=== PATIENT | female | born 1970 | race Caucasian/White ===

== ENCOUNTER → 2021-02-04 | Outpatient (CLI) | payer BC ==
[~2021-02-04] MED LIST: BAMLANIVIMAB (EUA) 700 MG, ETESEVIMAB (EUA) 1,400 MG in SODIUM CHLORIDE 0.9% 50 ML IVPB NR; SODIUM CHLORIDE 0.9% 50 ML IVPB NR; SODIUM CHLORIDE 0.9% 500 ML 500 ML in EMPTY BAG 1 BAG IV PRN
[2021-02-04 14:04] VITALS: RESP 18; TEMP 96.1
[2021-02-04 14:34] VITALS: BP 114/80; PULSE 65
== END ==
LOC: PROCWHC3 13:04
PROVIDERS: ATTEND Internal Medicine Geriatric Medicine
DX: U07.1 COVID-19 (principal); E66.9 Obesity, unspecified
CPT/HCPCS: 96360; J3490; M0245

== ENCOUNTER 2021-11-12 20:17 | Inpatient (IN) | payer BC ==
[2021-11-12] MEDS ORDERED: MORPHINE SULFATE 4 MG/ML SYRINGE IV STA (22:05)
[2021-11-12] MEDS ORDERED: ONDANSETRON 4 MG/2 ML VIAL IVP STA (22:05)
[2021-11-12] MEDS ORDERED: SODIUM CHLORIDE 0.9% 1,000 ML IV STA (22:05)
[2021-11-12 22:47] LABS: Basophils % (A) 1 %; Eosinophils # (A) 0.1 k/uL (0-0.7); Eosinophils % (A) 3 %; HCT 42.9 % (34.0-46.0); HGB 14.5 gm/dL (11.4-16.0); Lymphocytes # (A) 0.8 k/uL (1.0-4.8); Lymphocytes % (A) 19 %; MCH 30.1 pg (25.0-35.0); MCHC 33.8 g/dL (31.0-37.0); MCV 89.1 fL (80.0-100.0); Mean Platelet Volume 8.7; Monocytes # (A) 0.3 k/uL (0-1.0); Monocytes % (A) 6 %; Neutrophils # (A) 3.2 k/uL (1.3-7.7); Neutrophils % (A) 71 %; Platelet Count 275 k/uL (150-450); RBC 4.82 m/uL (3.80-5.40); RDW 12.7 % (11.5-15.5); WBC 4.5 k/uL (3.8-10.6)
--- NOTE | 2021-11-12 23:02 | ED ---
Abdominal Pain HPI - General Source: patient Mode of arrival: ambulatory Limitations: no limitations <Alda Call - Last Filed: 11/13/21 00:29> <Bran Franco - Last Filed: 11/13/21 02:57> - General Chief Complaint: Abdominal Pain Stated Complaint: acute abd pain Time Seen by Provider: 11/12/21 21:54 - History of Present Illness Initial Comments: Patient is a 51-year-old female presenting with chief complaint of epigastric pain. Patient states the pain started last night and has been getting worse. Patient describes it as a sharp pain. Patient had one episode of nausea and vomiting here in the ER, she states that prior to that she has not been experiencing these symptoms. No hematemesis, hematochezia, melena, diarrhea. No chest pain or shortness of breath. No fever or chills. (Alda Call) - Related Data Allergies Allergy/AdvReac Type Severity Reaction Status Date / Time No Known Allergies Allergy Verified 11/12/21 20:48 Review of Systems ROS Other: All systems not noted in ROS Statement are negative. <Alda Call - Last Filed: 11/13/21 00:29> ROS Other: All systems not noted in ROS Statement are negative. <Bran Franco - Last Filed: 11/13/21 02:57> ROS Statement: Those systems with pertinent positive or pertinent negative responses have been documented in the HPI. Past Medical History Past Medical History: No Reported History History of Any Multi-Drug Resistant Organisms: None Reported Past Surgical History: No Surgical Hx Reported Past Psychological History: No Psychological Hx Reported Smoking Status: Never smoker Past Alcohol Use History: Occasional Past Drug Use History: None Reported <Alda Call - Last Filed: 11/13/21 00:29> General Exam Limitations: no limitations General appearance: alert, in no apparent distress Head exam: Present: atraumatic, normocephalic, normal inspection Eye exam: Present: normal appearance, EOMI. Absent: scleral icterus, periorbital swelling Neck exam: Present: normal inspection Respiratory exam: Present: normal lung sounds bilaterally. Absent: respiratory distress, wheezes, rales, rhonchi, stridor Cardiovascular Exam: Present: regular rate, normal rhythm, normal heart sounds. Absent: systolic murmur, diastolic murmur, rubs, gallop, clicks GI/Abdominal exam: Present: soft. Absent: distended, tenderness, guarding, rebound, rigid Neurological exam: Present: alert, oriented X3, CN II-XII intact Psychiatric exam: Present: normal affect, normal mood Skin exam: Present: warm, dry, intact, normal color. Absent: rash <Alda Call - Last Filed: 11/13/21 00:29> Course <Alda Call - Last Filed: 11/13/21 00:29> Vital Signs 11/12/21 11/13/21 20:48 00:42 Temperature 98 F Pulse Rate 84 71 Respiratory 16 18 Rate Blood Pressure 164/107 124/86 O2 Sat by Pulse 98 97 Oximetry - Reevaluation(s) Reevaluation #1: Patient is signed out to attending Dr. Franco for further management and disposition 11/13/21 00:29 (Alda Call) Medical Decision Making - Lab Data Result diagrams: 11/12/21 22:25 11/12/21 23:15 <Alda Call - Last Filed: 11/13/21 00:29> - Lab Data Result diagrams: 11/12/21 22:25 11/12/21 23:15 <Bran Franco - Last Filed: 11/13/21 02:57> - Medical Decision Making Patient is a 51-year-old female presenting with chief complaint of epigastric pain that started yesterday. Patient started experiencing nausea and vomiting while here in the ER. On examination abdomen is soft, nontender, nondistended. CBC shows no leukocytosis or anemia. Bilirubin is 2.4, AST 869, ALT 838, alk phos 167. EKG shows no ischemic changes and troponin is less than 0.012. Ultrasound is ordered. (Alda Call) - Lab Data Lab Results 11/12/21 11/12/21 11/12/21 Range/Units 22:25 22:25 23:15 WBC 4.5 (3.8-10.6) k/uL RBC 4.82 (3.80-5.40) m/uL Hgb 14.5 (11.4-16.0) gm/dL Hct 42.9 (34.0-46.0) % MCV 89.1 (80.0-100.0) fL MCH 30.1 (25.0-35.0) pg MCHC 33.8 (31.0-37.0) g/dL RDW 12.7 (11.5-15.5) % Plt Count 275 (150-450) k/uL MPV 8.7 Neutrophils % 71 % Lymphocytes % 19 % Monocytes % 6 % Eosinophils % 3 % Basophils % 1 % Neutrophils # 3.2 (1.3-7.7) k/uL Lymphocytes # 0.8 L (1.0-4.8) k/uL Monocytes # 0.3 (0-1.0) k/uL Eosinophils # 0.1 (0-0.7) k/uL Basophils # 0.0 (0-0.2) k/uL PT 10.9 (9.0-12.0) sec INR 1.0 (<1.2) APTT 22.6 (22.0-30.0) sec Sodium (137-145) mmol/L Potassium (3.5-5.1) mmol/L Chloride (98-107) mmol/L Carbon Dioxide (22-30) mmol/L Anion Gap mmol/L BUN (7-17) mg/dL Creatinine (0.52-1.04) mg/dL Est GFR (CKD-EPI)AfAm (>60 ml/min/1.73 sqM) Est GFR (CKD-EPI)NonAf (>60 ml/min/1.73 sqM) Glucose (74-99) mg/dL Plasma Lactic Acid Beto (0.7-2.0) mmol/L Calcium (8.4-10.2) mg/dL Total Bilirubin (0.2-1.3) mg/dL AST (14-36) U/L ALT (4-34) U/L Alkaline Phosphatase (38-126) U/L Troponin I (0.000-0.034) ng/mL Total Protein (6.3-8.2) g/dL Albumin (3.5-5.0) g/dL Amylase (30-110) U/L Lipase (23-300) U/L Urine Color Dark Yellow Urine Appearance Cloudy H (Clear) Urine pH 6.5 (5.0-8.0) Ur Specific [place] 1.022 (1.001-1.035) Urine Protein 1+ H (Negative) Urine Glucose (UA) Negative (Negative) Urine Ketones Negative (Negative) Urine Blood Small H (Negative) Urine Nitrite Negative (Negative) Urine Bilirubin 2+ H (Negative) Urine Urobilinogen 8.0 (<2.0) mg/dL Ur Leukocyte Esterase Moderate H (Negative) Urine RBC 10 H (0-5) /hpf Urine WBC 23 H (0-5) /hpf Ur Squamous Epith Cells 2 (0-4) /hpf Urine Bacteria Rare H (None) /hpf Urine Mucus Rare H (None) /hpf Urine HCG, Qual (Not Detectd) 11/12/21 11/12/21 11/12/21 Range/Units 23:15 23:15 23:15 WBC (3.8-10.6) k/uL RBC (3.80-5.40) m/uL Hgb (11.4-16.0) gm/dL Hct (34.0-46.0) % MCV (80.0-100.0) fL MCH (25.0-35.0) pg MCHC (31.0-37.0) g/dL RDW (11.5-15.5) % Plt Count (150-450) k/uL MPV Neutrophils % % Lymphocytes % % Monocytes % % Eosinophils % % Basophils % % Neutrophils # (1.3-7.7) k/uL Lymphocytes # (1.0-4.8) k/uL Monocytes # (0-1.0) k/uL Eosinophils # (0-0.7) k/uL Basophils # (0-0.2) k/uL PT (9.0-12.0) sec INR (<1.2) APTT (22.0-30.0) sec Sodium 141 (137-145) mmol/L Potassium 3.7 (3.5-5.1) mmol/L Chloride 104 (98-107) mmol/L Carbon Dioxide 24 (22-30) mmol/L Anion Gap 13 mmol/L BUN 10 (7-17) mg/dL Creatinine 0.67 (0.52-1.04) mg/dL Est GFR (CKD-EPI)AfAm >90 (>60 ml/min/1.73 sqM) Est GFR (CKD-EPI)NonAf >90 (>60 ml/min/1.73 sqM) Glucose 121 H (74-99) mg/dL Plasma Lactic Acid Beto 1.0 (0.7-2.0) mmol/L Calcium 9.1 (8.4-10.2) mg/dL Total Bilirubin 2.4 H (0.2-1.3) mg/dL AST 869 H (14-36) U/L ALT 838 H (4-34) U/L Alkaline Phosphatase 167 H (38-126) U/L Troponin I (0.000-0.034) ng/mL Total Protein 7.1 (6.3-8.2) g/dL Albumin 4.4 (3.5-5.0) g/dL Amylase 44 (30-110) U/L Lipase 144 (23-300) U/L Urine Color Urine Appearance (Clear) Urine pH (5.0-8.0) Ur Specific Sterling (1.001-1.035) Urine Protein (Negative) Urine Glucose (UA) (Negative) Urine Ketones (Negative) Urine Blood (Negative) Urine Nitrite (Negative) Urine Bilirubin (Negative) Urine Urobilinogen (<2.0) mg/dL Ur Leukocyte Esterase (Negative) Urine RBC (0-5) /hpf Urine WBC (0-5) /hpf Ur Squamous Epith Cells (0-4) /hpf Urine Bacteria (None) /hpf Urine Mucus (None) /hpf Urine HCG, Qual Not Detected (Not Detectd) 11/12/21 Range/Units 23:15 WBC (3.8-10.6) k/uL RBC (3.80-5.40) m/uL Hgb (11.4-16.0) gm/dL Hct (34.0-46.0) % MCV (80.0-100.0) fL MCH (25.0-35.0) pg MCHC (31.0-37.0) g/dL RDW (11.5-15.5) % Plt Count (150-450) k/uL MPV Neutrophils % % Lymphocytes % % Monocytes % % Eosinophils % % Basophils % % Neutrophils # (1.3-7.7) k/uL Lymphocytes # (1.0-4.8) k/uL Monocytes # (0-1.0) k/uL Eosinophils # (0-0.7) k/uL Basophils # (0-0.2) k/uL PT (9.0-12.0) sec INR (<1.2) APTT (22.0-30.0) sec Sodium (137-145) mmol/L Potassium (3.5-5.1) mmol/L Chloride (98-107) mmol/L Carbon Dioxide (22-30) mmol/L Anion Gap mmol/L BUN (7-17) mg/dL Creatinine (0.52-1.04) mg/dL Est GFR (CKD-EPI)AfAm (>60 ml/min/1.73 sqM) Est GFR (CKD-EPI)NonAf (>60 ml/min/1.73 sqM) Glucose (74-99) mg/dL Plasma Lactic Acid Beto (0.7-2.0) mmol/L Calcium (8.4-10.2) mg/dL Total Bilirubin (0.2-1.3) mg/dL AST (14-36) U/L ALT (4-34) U/L Alkaline Phosphatase (38-126) U/L Troponin I <0.012 (0.000-0.034) ng/mL Total Protein (6.3-8.2) g/dL Albumin (3.5-5.0) g/dL Amylase (30-110) U/L Lipase (23-300) U/L Urine Color Urine Appearance (Clear) Urine pH (5.0-8.0) Ur Specific Sterling (1.001-1.035) Urine Protein (Negative) Urine Glucose (UA) (Negative) Urine Ketones (Negative) Urine Blood (Negative) Urine Nitrite (Negative) Urine Bilirubin (Negative) Urine Urobilinogen (<2.0) mg/dL Ur Leukocyte Esterase (Negative) Urine RBC (0-5) /hpf Urine WBC (0-5) /hpf Ur Squamous Epith Cells (0-4) /hpf Urine Bacteria (None) /hpf Urine Mucus (None) /hpf Urine HCG, Qual (Not Detectd) - EKG Data EKG Comments: Sinus rhythm rate of 76. [place] interval 151. QRS duration 90. QT/QTC 387/417. No ST deviation. (Alda Call) Disposition <Alda Call - Last Filed: 11/13/21 00:29> Is patient prescribed a controlled substance at d/c from ED?: No Time of Disposition: 03:00 <Bran Franco - Last Filed: 11/13/21 02:57> Clinical Impression: Abdominal pain, Abdominal colic, Cholecystitis, Hepatitis Disposition: ADMITTED IP TO THIS HOSP Condition: Good Referrals: Anjum Johnson MD [Primary Care Provider] - 1-2 days
[2021-11-12 23:10] LABS: Partial Thromboplastin Time 22.6 sec (22.0-30.0); Prothrombin Time 10.9 sec (9.0-12.0)
[2021-11-12 23:48] LABS: Appearance,Urine Cloudy (Clear); Bacteria,Urine Rare /hpf; Bilirubin,Urine 2+ (Negative); Blood,Urine Small (Negative); Color,Urine Dark Yellow; Glucose,Urine (UA) Negative (Negative); Ketones,Urine Negative (Negative); Leukocyte Esterase,Urine Moderate (Negative); Mucus,Urine Rare /hpf; Nitrite,Urine Negative (Negative); PH, Urine 6.5 (5.0-8.0); Protein,Urine 1+ (Negative); RBC,Urine 10 /hpf (0-5); Specific Gravity,Urine 1.022 (1.001-1.035); Squamous Epithelial Cell,Urine 2 /hpf (0-4); WBC,Urine 23 /hpf (0-5)
[2021-11-12 23:56] LABS: African American GFR (CKD) >90 (>60 ml/min/1.73 sqM); Albumin 4.4 g/dL (3.5-5.0); Alkaline Phosphatase 167 U/L (38-126); Amylase 44 U/L (30-110); Anion Gap 13 mmol/L; Blood Urea Nitrogen 10 mg/dL (7-17); Calcium 9.1 mg/dL (8.4-10.2); Carbon Dioxide 24 mmol/L (22-30); Chloride 104 mmol/L (98-107); Glucose 121 mg/dL (74-99); Lipase 144 U/L (23-300); Non-African American GFR(CKD) >90 (>60 ml/min/1.73 sqM); Potassium 3.7 mmol/L (3.5-5.1); Sodium 141 mmol/L (137-145); Total Bilirubin 2.4 mg/dL (0.2-1.3); Total Protein 7.1 g/dL (6.3-8.2)
[2021-11-13 00:07] LABS: ALT 838 U/L (4-34); AST 869 U/L (14-36)
[2021-11-13] MEDS ORDERED: METOCLOPRAMIDE 5 MG/ML 2 ML VIAL IVP STA (00:15)
--- NOTE | 2021-11-13 01:12 | US ---
EXAMINATION TYPE: US abdomen limited DATE OF EXAM: 11/13/2021 COMPARISON: NONE CLINICAL HISTORY: epigastric pain. epigastric pain x 1 day TECHNIQUE: Multiple sonographic images of the right upper quadrant are obtained. FINDINGS: EXAM MEASUREMENTS: Liver Length: 15.1 cm Gallbladder Wall: 0.81 cm CBD: 0.24 cm Right Kidney: 9.7 x 6.1 x 5.0 cm STOCK TRACER NOTES: Pancreas: wnl Liver: Increased attenuation Gallbladder: Limited due to bowel gas. Possible stone in neck? Wall thickening noted Evidence for sonographic Paul's sign: No CBD: wnl Right Kidney: wnl IMPRESSION: There is gallbladder wall thickening. No dilated ducts. There is some shadowing at the gallbladder ne ck that could be impacted gallstone. This could be acute and chronic cholecystitis.
[2021-11-13] MEDS ORDERED: AMPICILLIN-SULBACTAM 3 GM in SODIUM CHLORIDE 0.9% 100 ML IVPB STA (02:20)
[2021-11-13] MEDS ORDERED: NALOXONE 0.4 MG/ML 1 ML VIAL IV PRN (02:55)
[2021-11-13] MEDS ORDERED: MORPHINE SULFATE 4 MG/ML SYRINGE IV PRN (02:55)
[2021-11-13] MEDS: SODIUM CHLORIDE 0.9% 1,000 ML IV SCH ×3 (05:17→18:26)
[2021-11-13 08:42] LABS: AST 619 U/L (14-36); African American GFR (CKD) >90 (>60 ml/min/1.73 sqM); Albumin 4.1 g/dL (3.5-5.0); Albumin/Globulin Ratio 1.6; Alkaline Phosphatase 168 U/L (38-126); Anion Gap 8 mmol/L; Blood Urea Nitrogen 9 mg/dL (7-17); Calcium 8.5 mg/dL (8.4-10.2); Carbon Dioxide 30 mmol/L (22-30); Chloride 104 mmol/L (98-107); Globulin 2.6 g/dL; Glucose 104 mg/dL (74-99); Non-African American GFR(CKD) >90 (>60 ml/min/1.73 sqM); Potassium 3.9 mmol/L (3.5-5.1); Sodium 142 mmol/L (137-145); Total Bilirubin 1.6 mg/dL (0.2-1.3); Total Protein 6.7 g/dL (6.3-8.2)
[2021-11-13 09:12] LABS: ALT 773 U/L (4-34)
[2021-11-13 09:20] LABS: Basophils % (A) 1 %; Eosinophils # (A) 0.2 k/uL (0-0.7); Eosinophils % (A) 4 %; HCT 40.1 % (34.0-46.0); HGB 13.2 gm/dL (11.4-16.0); Lymphocytes % (A) 23 %; MCH 29.5 pg (25.0-35.0); MCHC 32.8 g/dL (31.0-37.0); MCV 89.9 fL (80.0-100.0); Mean Platelet Volume 9.5; Monocytes # (A) 0.3 k/uL (0-1.0); Monocytes % (A) 7 %; Neutrophils # (A) 2.7 k/uL (1.3-7.7); Neutrophils % (A) 64 %; Platelet Count 250 k/uL (150-450); RBC 4.46 m/uL (3.80-5.40); RDW 13.1 % (11.5-15.5); WBC 4.3 k/uL (3.8-10.6)
[2021-11-13 09:24] LABS: Hepatitis A Antibody IgM Nonreactive (Nonreactive); Hepatitis B Core IgM Nonreactive (Nonreactive); Hepatitis B Surface Antigen Nonreactive (Nonreactive); Hepatitis C IgG Antibody Nonreactive (Nonreactive)
[2021-11-13] MEDS: PANTOPRAZOLE 40 MG/10 ML VIAL IV SCH (09:52)
[2021-11-13] MEDS: ONDANSETRON 4 MG/2 ML VIAL IVP PRN (09:59)
[2021-11-13] MEDS ORDERED: ACETAMINOPHEN TAB 325 MG TAB PO PRN (10:40)
[2021-11-13] MEDS ORDERED: AMPICILLIN-SULBACTAM 3 GM in SODIUM CHLORIDE 0.9% 100 ML IVPB SCH (11:00)
--- NOTE | 2021-11-13 11:26 | P.GSHP ---
History of Present Illness H&P Date: 11/13/21 CHIEF COMPLAINT: Abdominal pain HISTORY OF PRESENT ILLNESS: This is a 51-year-old female who presented to the hospital with complaints of epigastric abdominal pain that started Wednesday night. She had eaten [place] toast for dinner as well as had an Excedrin for headache. Patient describes it as a burning sensation in the epigastric area that moved up into the chest. The pain became very severe was rating it a 9 out of 10. Patient continued to have pain over the last couple days. She did have episode of vomiting in the ER. She came in for further evaluation. Abdominal ultrasound had shown evidence of collateral thickening. Impacted gallbladder neck stone and correlate for acute and chronic cholecystitis. She did have elevated total bilirubin and LFTs. Patient has never had symptoms at this before. Patient reports that her pain is better today. She does have some mild nausea. She denies any prior abdominal surgical history. She denies any cardiac history. PAST MEDICAL HISTORY: none PAST SURGICAL HISTORY: none MEDICATIONS: See list. ALLERGIES: See list. SOCIAL HISTORY: No illicit drug use. REVIEW OF SYSTEMS: CONSTITUTIONAL: Denies fever or chills. HEENT: Denies blurred vision, vision changes, or eye pain. Denies hemoptysis ENDOCRINE: Denies heat or cold intolerance. CARDIOVASCULAR: Denies chest pain or pressure. RESPIRATORY: No shortness of breath. GASTROINTESTINAL: please refer to HPI NEURO: Denies history of seizures. PSYCH: No depression or suicidal ideation HEMATOLOGIC: Denies bleeding disorders. LYMPHATIC: The patient denies any lumps and bumps around the neck. GENITOURINARY: Denies any blood in urine or increased urinary frequency. MUSCULOSKELETAL: Denies myalgias. Denies joint swelling. Denies decreased range of motion beyond patients baseline. SKIN: Denies pruitis. Denies rash. PHYSICAL EXAM: VITAL SIGNS: Reviewed GENERAL: Well-developed in no acute distress. HEENT: No sclera icterus. Extraocular movements grossly intact. Moist buccal mucosa. Head is atraumatic, normocephalic. Hears conversational speech. No nasal de inage. NECK: Supple without lymphadenopathy. CHEST: Non-labored respirations and equal bilateral excursions. CARDIOVASCULAR: Palpable 2+ radial pulses. ABDOMEN: Soft. Nondistended. Nontender MUSCULOSKELETAL: No clubbing or cyanosis. NEUROLOGIC: No focal or lateralizing signs. Cranial nerves II through XII grossly intact. PSYCH: Appropriate affect. Alert and oriented to person, place and time. SKIN: Well perfused. Good skin turgor. LABORATORY DATA: WBC 4.3 Hgb 13.2 platelets 250 Sodium 142 potassium 3.9 creatinine 0.65 Lactic acid 1.0 Total bilirubin 2.4 down to 1.6 AST 869 down to 619 ALT 838 down to 773 alk phos 167 up to 168 Lipase 144 Troponin negative Hepatitis panel negative urinalysis moderate leukocyte esterase Urine culture pending IMAGING: Abdominal ultrasound there is gallbladder wall thickening. No dilated ducts. There is some shadowing at the gallbladder neck could be impacted gallstone. This could be acute and chronic cholecystitis. ASSESSMENT: 1. Possible acute and chronic cholecystitis. Abdominal ultrasound showing gallbladder wall thickening and some shadowing at the gallbladder neck that could be impacted gallstone. 2. Possible choledocholithiasis with passing of gallstone 3. Elevated LFTs and total bilirubin 4. Possible UTI PLAN: -Patient is scheduled for Robotic cholecystectomy tomorrow, 11/14/[address] Starks -MRCP ordered to rule out any common bile duct stone -Patient can have clear liquid diet today -Nothing by mouth after midnight -Continue IV antibiotics -Continue antiemetics and pain medication as needed -Continue IV fluids Physician Basketball Commentator note has been reviewed by physician. Signing provider agrees with the documented findings, assessment, and plan of care. REASON FOR ADMISSION: Elevated liver enzymes abdominal pain cholecystitis HISTORY OF PRESENT ILLNESS: The patient is a 37-year-old female who reports no prior history of gallstones who presented to emergency room with acute onset epigastric right upper quadrant abdominal pain. She reports dark-colored urine. No prior events. All of the events happened in the last 1-2 days. She presented with elevated liver enzymes over 600 700s and 100s for AST ALT and alkaline phosphatase. Total bilirubin was also elevated. Diagnostic studies demonstrated impacted gallstone. As result of precipitation of possible choledocholithiasis, patient is admitted. PAST MEDICAL HISTORY: See list and reviewed PAST SURGICAL HISTORY: See list and reviewed MEDICATIONS: See list and reviewed ALLERGIES: See list and reviewed SOCIAL HISTORY: See list and reviewed FAMILY HISTORY: See list and reviewed REVIEW OF ORGAN SYSTEMS: CONSTITUTIONAL: No fevers or chills. No recent weight loss. BMI 38.0 with obesity EYES: Denies any trouble with vision. No glasses. HEENT: No difficulties with hearing. No nosebleeds. No difficulty swallowing. RESPIRATORY: Denies pneumonia. Denies any troubles with breathing or dyspnea on exertion. Has multiple seasonal and food ALLERGIES. CARDIOVASCULAR: Denies any chest pain, palpitations, or recent heart attacks. GASTROINTESTINAL: Denies fatty food intolerance. Denies change in bowel habits and gas bloat. GENITOURINARY: Denies any blood in urine or increased urinary frequency. NEUROLOGICAL: Denies any numbness or tingling along the distal extremities. No seizure disorders or headaches. MUSCULOSKELETAL: Denies any back pain, stiffness or joint arthritis. SKIN: No current skin cancer. No rash. PSYCHIATRIC: Denies current depression or suicidal thoughts. ENDOCRINE: Denies current thyroid disorders. Denies any blood sugar glucose intolerance. HEME/LYMPHATIC: Denies any lumps and bumps around the neck. No recent deep venous thrombosis. ALLERGY/IMMUNOLOGY: No immunoglobulin therapy. No immune deficiencies. BREAST: Denies current breast lumps, pain or nipple discharge. PHYSICAL EXAM: VITALS: Reviewed CONSTITUTIONAL: Well developed and in no acute distress. EYES: Conjuctivae with sclera icterus. Extraocular movements grossly intact. HEAD, EARS, NOSE, THROAT: Moist buccal mucosa. Head is atraumatic, normocephalic. Hears conversational speech. No nasal drainage. NECK: Supple. No JV distention. No thyroidomegaly. RESPIRATORY: Non-labored respirations and equal bilateral excursions. No gross wheezes. CARDIOVASCULAR: Palpable 2+ radial pulses. ABDOMEN: Tender epigastrium. LYMPH: No neck lymphadenopathy. MUSCULOSKELETAL: Nail and fingers with good capillary refill. SKIN: Warm and well perfused with good skin turgor. NEUROLOGIC: Cranial nerves II through XII grossly intact. No focal or lateralizing signs. PSYCH: Appropriate affect. Alert and oriented to person, place and time. Displays appropriate insight. CLINCAL LABS: Reviewed. WBC normal 4.5 on admission. Total bilirubin elevated at 2.4. AST elevated 869. ALT elevated 838. Alkaline phosphatase elevated 167. Urine positive for 2+ bilirubin. IMAGING: Independently reviewed. Ultrasound of the gallbladder independently reviewed demonstrates thickened gallbladder wall with gallstones at the infundibulum and fatty liver disease. This is my independent interpretation. RADIOLOGY: Report reviewed. Ultrasound demonstrates acute and chronic cholecystitis with thickened gallbladder wall. Common bile duct within normal limits. Negative Paul sign. Liver increased attenuation. EKG: Normal sinus rhythm. ASSESSMENT: 1. Acute cholecystitis with elevated liver enzymes 2. Obesity due to excess calories, BMI 38.0 3. Choledocholithiasis in presence of acute cholecystitis PLAN: 1. IV fluid hydration. 2. IV antibiotics were acute cholecystitis 3. GI consulted per emergency room provider 4. Hepatitis serology sent 5. Recommend MRCP for risk of choledocholithiasis 6. Repeat chemistries 7. May have clear liquid diet. 8. Surgical intervention pending MRCP and clinical progress. ADVANCE DIRECTIVE: Thank you for this kind consultation. Past Medical History Past Medical History: No Reported History History of Any Multi-Drug Resistant Organisms: None Reported Past Surgical History: No Surgical Hx Reported Past Psychological History: No Psychological Hx Reported Smoking Status: Never smoker Past Alcohol Use History: Occasional Past Drug Use History: None Reported Medications and Allergies Home Medications Medication Instructions Recorded Confirmed Type Cetirizine HCl [Zyrtec] 10 mg PO DAILY 11/13/21 11/13/21 History diphenhydrAMINE HCL [Benadryl] 50 mg PO HS 11/13/21 11/13/21 History Allergies Allergy/AdvReac Type Severity Reaction Status Date / Time egg Allergy Dyspnea Verified 11/13/21 07:47 Milk Containing Products Allergy Dyspnea Verified 11/13/21 07:47 [Dairy] pollen extracts Allergy Dyspnea Verified 11/13/21 13:32 wheat Allergy Dyspnea Verified 11/13/21 07:47 hydrocodone [From [place]] AdvReac Nausea & Verified 11/13/21 13:44 Vomiting Surgical - Exam Vital Signs Temp Pulse Resp BP Pulse Ox 98 F 84 16 164/107 98 11/12/21 20:48 11/12/21 20:48 11/12/21 20:48 11/12/21 20:48 11/12/21 20:48 Results - Labs 11/14/21 07:39 11/14/21 07:39 Abnormal Lab Results - Last 24 Hours (Table) 11/12/21 11/12/21 11/12/21 Range/Units 22:25 23:15 23:15 Lymphocytes # 0.8 L (1.0-4.8) k/uL Glucose 121 H (74-99) mg/dL Total Bilirubin 2.4 H (0.2-1.3) mg/dL AST 869 H (14-36) U/L ALT 838 H (4-34) U/L Alkaline Phosphatase 167 H (38-126) U/L Urine Appearance Cloudy H (Clear) Urine Protein 1+ H (Negative) Urine Blood Small H (Negative) Urine Bilirubin 2+ H (Negative) Ur Leukocyte Esterase Moderate H (Negative) Urine RBC 10 H (0-5) /hpf Urine WBC 23 H (0-5) /hpf Urine Bacteria Rare H (None) /hpf Urine Mucus Rare H (None) /hpf 11/13/21 Range/Units 08:21 Lymphocytes # (1.0-4.8) k/uL Glucose 104 H (74-99) mg/dL Total Bilirubin 1.6 H (0.2-1.3) mg/dL AST 619 H (14-36) U/L ALT 773 H (4-34) U/L Alkaline Phosphatase 168 H (38-126) U/L Urine Appearance (Clear) Urine Protein (Negative) Urine Blood (Negative) Urine Bilirubin (Negative) Ur Leukocyte Esterase (Negative) Urine RBC (0-5) /hpf Urine WBC (0-5) /hpf Urine Bacteria (None) /hpf Urine Mucus (None) /hpf Diabetes panel 11/12/21 11/13/21 Range/Units 23:15 08:21 Sodium 141 142 (137-145) mmol/L Potassium 3.7 3.9 (3.5-5.1) mmol/L Chloride 104 104 (98-107) mmol/L Carbon Dioxide 24 30 (22-30) mmol/L BUN 10 9 (7-17) mg/dL Creatinine 0.67 0.65 (0.52-1.04) mg/dL Glucose 121 H 104 H (74-99) mg/dL Calcium 9.1 8.5 (8.4-10.2) mg/dL AST 869 H 619 H (14-36) U/L ALT 838 H 773 H (4-34) U/L Alkaline Phosphatase 167 H 168 H (38-126) U/L Total Protein 7.1 6.7 (6.3-8.2) g/dL Albumin 4.4 4.1 (3.5-5.0) g/dL Calcium panel 11/12/21 11/13/21 Range/Units 23:15 08:21 Calcium 9.1 8.5 (8.4-10.2) mg/dL Albumin 4.4 4.1 (3.5-5.0) g/dL Pituitary panel 11/12/21 11/13/21 Range/Units 23:15 08:21 Sodium 141 142 (137-145) mmol/L Potassium 3.7 3.9 (3.5-5.1) mmol/L Chloride 104 104 (98-107) mmol/L Carbon Dioxide 24 30 (22-30) mmol/L BUN 10 9 (7-17) mg/dL Creatinine 0.67 0.65 (0.52-1.04) mg/dL Glucose 121 H 104 H (74-99) mg/dL Calcium 9.1 8.5 (8.4-10.2) mg/dL Adrenal panel 11/12/21 11/13/21 Range/Units 23:15 08:21 Sodium 141 142 (137-145) mmol/L Potassium 3.7 3.9 (3.5-5.1) mmol/L Chloride 104 104 (98-107) mmol/L Carbon Dioxide 24 30 (22-30) mmol/L BUN 10 9 (7-17) mg/dL Creatinine 0.67 0.65 (0.52-1.04) mg/dL Glucose 121 H 104 H (74-99) mg/dL Calcium 9.1 8.5 (8.4-10.2) mg/dL Total Bilirubin 2.4 H 1.6 H (0.2-1.3) mg/dL AST 869 H 619 H (14-36) U/L ALT 838 H 773 H (4-34) U/L Alkaline Phosphatase 167 H 168 H (38-126) U/L Total Protein 7.1 6.7 (6.3-8.2) g/dL Albumin 4.4 4.1 (3.5-5.0) g/dL
[2021-11-13] MEDS: PIPERACILLIN-TAZOBACTAM 3.375 GM in SODIUM CHLORIDE 0.9% 100 ML IVPB SCH ×2 (11:35→18:26)
--- NOTE | 2021-11-13 15:59 | P.CONS ---
History of Present Illness - Reason for Consult Consult date: 11/13/21 Cholelithiasis, elevated LFTs Requesting physician: Bran Franco - Chief Complaint Abdominal pain - History of Present Illness This is a pleasant 51-year-old female who presented to the hospital with complaints of epigastric abdominal pain that started Wednesday night. She had eaten Romansh toast for dinner as well as had an Excedrin for headache. Patient describes it as a burning sensation in the epigastric area that moved up into the chest. The pain became very severe was rating it a 9 out of 10. Patient continued to have pain over the last couple days. She did have episode of vomiting in the ER. She came in for further evaluation. Abdominal ultrasound reports evidence of gallbladder wall thickening. No dilated ducts. There is some shadowing at the gallbladder neck that could be impacted gallstone. This could be acute and chronic cholecystitis. She did have elevated total bilirubin and LFTs. Patient has never had symptoms at this before. Patient reports that her pain is better today. She does have some mild nausea. She denies any prior abdominal surgical history. She denies any cardiac history. Gastroenterology was consulted for cholelithiasis, with elevated LFTs. Patient denied any fevers or chills. Admission labs showed total bilirubin 2.4 AST 869 ALT 838 alkaline phosphatase 167 amylase 44 lipase 144 Labs: WBC 4.3 hemoglobin 13 hematocrit 40 platelet count 250,000 sodium 142 potassium 3.9 BUN 9 creatinine 0.6 glucose 104 total bilirubin 1.6 AST 619 ALT 773 alkaline phosphatase 168 Review of Systems REVIEW OF SYSTEMS: CARDIOPULMONARY: No chest pain or shortness of breath. Gastrointestinal: Burning sensation in epigastric region, with severe epigastric pain. Nausea no vomiting. No hematemesis, coffee-ground emesis. No rectal bleeding, or melena. GENITOURINARY: No dysuria or hematuria. MUSCULOSKELETAL: Reports normal range of motion. SKIN: No rashes. No jaundice. ENDOCRINE: No chills, fevers. No excessive weight gain or loss. No polydipsia or polyuria. PSYCHIATRIC: Unremarkable. NEUROLOGY: No change in mental status. Denies dizziness, headache. ENT: Vision unremarkable. CONSTITUTIONAL: No recent weight loss. No fever, chills, night sweats. Past Medical History Past Medical History: No Reported History History of Any Multi-Drug Resistant Organisms: None Reported Past Surgical History: No Surgical Hx Reported Past Psychological History: No Psychological Hx Reported Smoking Status: Never smoker Past Alcohol Use History: Occasional Past Drug Use History: None Reported Medications and Allergies Home Medications Medication Instructions Recorded Confirmed Type Cetirizine HCl [Zyrtec] 10 mg PO DAILY 11/13/21 11/13/21 History diphenhydrAMINE HCL [Benadryl] 50 mg PO HS 11/13/21 11/13/21 History Allergies Allergy/AdvReac Type Severity Reaction Status Date / Time egg Allergy Dyspnea Verified 11/13/21 07:47 Milk Containing Products Allergy Dyspnea Verified 11/13/21 07:47 [Dairy] pollen extracts Allergy Dyspnea Verified 11/13/21 13:32 wheat Allergy Dyspnea Verified 11/13/21 07:47 acetaminophen [From [place]] AdvReac Nausea & Verified 11/13/21 13:44 Vomiting hydrocodone [From [place]] AdvReac Nausea & Verified 11/13/21 13:44 Vomiting Physical Exam Vitals: Vital Signs Temp Pulse Resp BP Pulse Ox 11/13/21 07:53 74 18 101/69 98 11/13/21 06:20 97.9 F 79 18 103/59 98 11/13/21 03:26 97.7 F 72 18 107/79 99 11/13/21 00:42 71 18 124/86 97 11/12/21 20:48 98 F 84 16 164/107 98 Intake and Output 11/12/21 11/13/21 11/13/21 22:59 06:59 14:59 Other: Weight 113.398 kg General appearance: The patient is alert, oriented, appears in no acute distress. Obese. HET: Head is normocephalic and atraumatic. Conjunctiva pink. Sclera anicteric. Neck: Supple without lymphadenopathy. Trachea midline. Heart: S1 S2. Regular rate and rhythm. Lungs: Clear to auscultation. Abdomen: Soft, obese, nontender, nondistended with bowel sounds. No guarding or rigidity. Skin: No rashes. No jaundice. Extremities: Normal skin color and turgor. No pedal edema. Neurological: No focal deficits. Alert and oriented x3. Results CBC & Chem 7: 11/13/21 08:21 11/13/21 08:21 Labs: Abnormal Lab Results - Last 24 Hours (Table) 11/12/21 11/12/21 11/12/21 Range/Units 22:25 23:15 23:15 Lymphocytes # 0.8 L (1.0-4.8) k/uL Glucose 121 H (74-99) mg/dL Total Bilirubin 2.4 H (0.2-1.3) mg/dL AST 869 H (14-36) U/L ALT 838 H (4-34) U/L Alkaline Phosphatase 167 H (38-126) U/L Urine Appearance Cloudy H (Clear) Urine Protein 1+ H (Negative) Urine Blood Small H (Negative) Urine Bilirubin 2+ H (Negative) Ur Leukocyte Esterase Moderate H (Negative) Urine RBC 10 H (0-5) /hpf Urine WBC 23 H (0-5) /hpf Urine Bacteria Rare H (None) /hpf Urine Mucus Rare H (None) /hpf 11/13/21 Range/Units 08:21 Lymphocytes # (1.0-4.8) k/uL Glucose 104 H (74-99) mg/dL Total Bilirubin 1.6 H (0.2-1.3) mg/dL AST 619 H (14-36) U/L ALT 773 H (4-34) U/L Alkaline Phosphatase 168 H (38-126) U/L Urine Appearance (Clear) Urine Protein (Negative) Urine Blood (Negative) Urine Bilirubin (Negative) Ur Leukocyte Esterase (Negative) Urine RBC (0-5) /hpf Urine WBC (0-5) /hpf Urine Bacteria (None) /hpf Urine Mucus (None) /hpf Microbiology - Last 24 Hours (Table) 11/12/21 23:15 Urine Culture - Preliminary Urine,Voided US - abdomen: report reviewed (Abdominal ultrasound had shown evidence of gallbladder wall thickening. No dilated ducts. There is some shadowing at the gallbladder neck that could be impacted gallstone. This could be acute and chronic cholecystitis.) Assessment and Plan (1) Transaminitis Narrative/Plan: 1-year-old female who came in with complaints of sharp epigastric pain, and burning sensation that began to stay and lasted until yesterday. Patient came i nto the emergency department his pain continued and she felt nauseated. Nothing was relieving the pain. Her while she was sleeping, didn't matter what side she laid down. Nothing seemed to relieve it. She came into the emergency further evaluation LFTs were elevated, ultrasound showing gallbladder wall thickening, no dilated ducts shadowing in the gallbladder neck that could be an impacted gal lstone. Possible acute and chronic cholecystitis. Patient is afebrile. Labs initially looked like possible choledochal lithiasis however they are trending down. Abdominal pain is completely resolved. Gen. surgery is the admitting physician, they have ordered an MRCP. Will await further recommendations. Current Visit: Yes Status: Acute Code(s): R74.01 - ELEVATION OF LEVELS OF LIVER TRANSAMINASE LEVELS SNOMED Code(s): 739629098 (2) Cholelithiasis Current Visit: Yes Status: Acute Code(s): K80.20 - CALCULUS OF GALLBLADDER W/O CHOLECYSTITIS W/O OBSTRUCTION SNOMED Code(s): 766879549 (3) Hyperbilirubinemia Current Visit: Yes Status: Acute Code(s): E80.6 - OTHER DISORDERS OF BILIRUBIN METABOLISM SNOMED Code(s): 46549685 (4) Obesity (BMI 30-39.9) Current Visit: Yes Status: Acute Code(s): E66.9 - OBESITY, UNSPECIFIED SNOMED Code(s): 189882955 Plan: 1. Continue symptomatic and supportive care 2. Continue antiemetics 3. Protonix GI prophylaxis 4. Pain medication as needed 5. Clear liquid diet, nothing by mouth after midnight 6. Agree with MRCP 7. Await further recommendations from general surgeon Thank you for this consultation, we will continue to follow. Dr. Korin Fernando I agree with the dictator's note, documented as a scribe by Ellen Haskins.
[2021-11-13] MEDS: diphenhydrAMINE 25 MG CAP PO SCH (20:42)
[2021-11-14] MEDS: PIPERACILLIN-TAZOBACTAM 3.375 GM in SODIUM CHLORIDE 0.9% 100 ML IVPB SCH ×5 (02:10→17:22)
[2021-11-14] MEDS: SODIUM CHLORIDE 0.9% 1,000 ML IV SCH ×3 (02:10→19:57)
[2021-11-14] MEDS: PANTOPRAZOLE 40 MG/10 ML VIAL IV SCH (07:33)
[2021-11-14 10:32] LABS: Basophils # (A) 0.08 X 10*3/uL (0.00-0.10); Basophils % (A) 1.3 %; Eosinophils # (A) 0.24 X 10*3/uL (0.04-0.35); HCT 43.3 % (37.2-46.3); HGB 14.2 g/dL (12.0-15.0); Immature Grans, Automated 0.3 %; Lymphocytes # (A) 1.85 X 10*3/uL (0.90-5.00); Lymphocytes % (A) 31.1 %; MCH 29.5 pg (27.0-32.0); MCHC 32.8 g/dL (32.0-37.0); Mean Platelet Volume 11.6 fL (9.5-12.2); Monocytes # (A) 0.29 X 10*3/uL (0.20-1.00); Monocytes % (A) 4.9 %; NRBC Per 100 WBC 0 /100 WBCS (0.0-0.0); Neutrophils # (A) 3.46 X 10*3/uL (1.80-7.70); Neutrophils % (A) 58.4 %; Platelet Count 295 X 10*3/uL (140-440); RBC 4.81 X 10*6/uL (4.10-5.20); RDW 13.4 % (11.5-14.5); WBC 5.94 X 10*3/uL (4.50-10.00)
[2021-11-14 10:58] LABS: African American GFR (CKD) 97.6 (60.0-200.0); Albumin 4.4 g/dL (3.8-4.9); Albumin/Globulin Ratio 1.57 (1.60-3.17); Anion Gap 11.6 mmol/L (10.00-18.00); Blood Urea Nitrogen 5.6 mg/dL (9.0-27.0); Calcium 9.1 mg/dL (8.7-10.3); Carbon Dioxide 23.4 mmol/L (20.0-27.5); Globulin 2.8 g/dL (1.6-3.3); Magnesium 2.1 mg/dL (1.5-2.4); Non-African American GFR(CKD) 84.2 (60.0-200.0); Phosphorus 3.2 mg/dL (2.4-5.1); Potassium 4.1 mmol/L (3.5-5.5); Total Bilirubin 0.6 mg/dL (0.30-1.20); Total Protein 7.2 g/dL (6.2-8.2)
--- NOTE | 2021-11-14 11:32 | MR ---
EXAMINATION TYPE: MR MRCP DATE OF EXAM: 11/14/2021 COMPARISON: Ultrasound dated 11/13/2021 HISTORY: CBD obstruction Standard multiplanar, multisequence MRI departmental protocol Multiplanar, multisequence images of the biliary tree were acquired without contrast. Diffusion weigh kristin imaging was performed. FINDINGS: The liver is of normal size. There is no evidence for intrahepatic biliary ductal dilatation. No spac e-occupying intrahepatic lesions are seen. The gallbladder demonstrates a 1 cm gallstone near the gallbladder neck. There is gallbladder wall th ickening at 6 mm. No definite pericholecystic fluid. Common bile duct is of normal caliber at 4 mm. The pancreas, spleen, adrenal glands and kidneys are within normal limits. No adenopathy. No evidence for aneurysm. IMPRESSION: Gallstone within the gallbladder neck without gallbladder wall thickening. No CBD dilatation or peric holecystic fluid. Correlate clinically.
--- NOTE | 2021-11-14 13:40 | P.PN ---
Subjective Progress Note Date: 11/14/21 Principal diagnosis: Cholelithiasis, elevated LFTs This is a pleasant 51-year-old female who presented to the hospital with complaints of epigastric abdominal pain that started Wednesday night. She had eaten Arabic toast for dinner as well as had an Excedrin for headache. Patient describes it as a burning sensation in the epigastric area that moved up into the chest. The pain became very severe was rating it a 9 out of 10. Patient continued to have pain over the last couple days. She did have episode of vomiting in the ER. She came in for further evaluation. Abdominal ultrasound reports evidence of gallbladder wall thickening. No dilated ducts. There is some shadowing at the gallbladder neck that could be impacted gallstone. This could be acute and chronic cholecystitis. She did have elevated total bilirubin and LFTs. Patient has never had symptoms at this before. Patient reports that her pain is better today. She does have some mild nausea. She denies any prior abdominal surgical history. She denies any cardiac history. Gastroenterology was consulted for cholelithiasis, with elevated LFTs. Patient denied any fevers or chills. Admission labs showed total bilirubin 2.4 AST 869 ALT 838 alkaline phosphatase 167 amylase 44 lipase 144 11/14/2021. Patient seen and examined standing up in her room. She is seen for follow-up for cholelithiasis, elevated LFTs. LFTs continued to trend down. She is scheduled to undergo MRCP today with possible cholecystectomy. She denies any abdominal pain, no nausea or vomiting. Total bilirubin 0.6 AST 186 ALT 527 alkaline phosphatase 160 lipase 41. No evidence of leukocytosis, she's been afebrile. Objective - Vital Signs Vital signs: Vital Signs Temp 97.9 F 11/14/21 07:00 Pulse 71 11/14/21 07:00 Resp 16 11/14/21 07:26 BP 95/63 11/14/21 07:00 Pulse Ox 93 L 11/14/21 07:00 FiO2 Intake & Output 11/13/21 11/14/21 11/14/21 18:59 06:59 18:59 Intake Total 240 Balance 240 Weight 113.398 kg Intake: Oral 240 Other: Voiding Method Toilet Toilet # Voids 2 1 1 - Exam General appearance: The patient is alert, oriented, appears in no acute distress. Obese. HET: Head is normocephalic and atraumatic. Conjunctiva pink. Sclera anicteric. Neck: Supple without lymphadenopathy. Abdomen: Soft, nontender, nondistended with bowel sounds. No guarding or rigidity. Extremities: Normal skin color and turgor. No pedal edema Skin: No rashes, no jaundice Neurological: No focal deficits. Alert and oriented. - Labs CBC & Chem 7: 11/14/21 07:39 11/14/21 07:39 Labs: Abnormal Lab Results - Last 24 Hours (Table) 11/14/21 Range/Units 07:39 BUN 5.6 L (9.0-27.0) mg/dL BUN/Creatinine Ratio 7.00 L (12.00-20.00) Ratio AST 186 H (13-35) U/L ALT 527 H (8-44) U/L Alkaline Phosphatase 160 H (41-126) U/L Albumin/Globulin Ratio 1.57 L (1.60-3.17) g/dL Microbiology - Last 24 Hours (Table) 11/12/21 23:15 Urine Culture - Final Urine,Voided Strep agalactiae - (group b) Assessment and Plan (1) Transaminitis Narrative/Plan: 1-year-old female who came in with complaints of sharp epigastric pain, and burning sensation that began to stay and lasted until yesterday. Patient came into the emergency department his pain continued and she felt nauseated. Nothing was relieving the pain. Her while she was sleeping, didn't matter what side she laid down. Nothing seemed to relieve it. She came into the emergency further evaluation LFTs were elevated, ultrasound showing gallbladder wall thickening, no dilated ducts shadowing in the gallbladder neck that could be an impacted gallstone. Possible acute and chronic cholecystitis. Patient is afebrile. Labs initially looked like possible choledochal lithiasis however they are trending down. Abdominal pain is completely resolved. Gen. surgery is the admitting physician, they have ordered an MRCP. Will await further recommendations. LFTs trending down. MRCP completed showing gallstone within the gallbladder neck without gallbladder wall thickening. No CBD dilation or. Clear cystic fluid. Correlate clinically. Current Visit: Yes Status: Acute Code(s): R74.01 - ELEVATION OF LEVELS OF LIVER TRANSAMINASE LEVELS SNOMED Code(s): 113101127 (2) Cholelithiasis Current Visit: Yes Status: Acute Code(s): K80.20 - CALCULUS OF GALLBLADDER W/O CHOLECYSTITIS W/O OBSTRUCTION SNOMED Code(s): 768248529 (3) Hyperbilirubinemia Current Visit: Yes Status: Acute Code(s): E80.6 - OTHER DISORDERS OF BILIRUBIN METABOLISM SNOMED Code(s): 48899279 (4) Obesity (BMI 30-39.9) Current Visit: Yes Status: Acute Code(s): E66.9 - OBESITY, UNSPECIFIED SNOMED Code(s): 137545191 Plan: 1. Continue symptomatic and supportive care 2. Continue antiemetics 3. Protonix GI prophylaxis 4. Pain medication as needed 5. Continue with recommendations from general surgery 6. No plans on ERCP Thank you for allowing us to participate in the care of the patient, the GI service will sign off, gastroenterology will not be available at the hospital this weekend. If further evaluation by gastroenterology is required the patient will need transfer as per the primary team's discretion. Dr. Korin Fernando I agree with the dictator's note, documented as a scribe by Ellen Haskins.
--- NOTE | 2021-11-14 14:45 | P.PN ---
Subjective Progress Note Date: 11/14/21 CHIEF COMPLAINT: Choledocholithiasis with acute cholecystitis HISTORY OF PRESENT ILLNESS: The patient is a 51-year-old female admitted for choledocholithiasis acute cholecystitis. She completed MRCP. No further dark urine. Family is at bedside. She reports thirst. ROS: No fevers or chills. No new chest pain. No productive sputum PHYSICAL EXAM: VITAL SIGNS: Reviewed CONSTITUTIONAL: Well developed and in no acute distress. EYES: Conjuctivae without sclera icterus. Extraocular movements grossly intact. HEAD, EARS, NOSE, THROAT: Moist buccal mucosa. Head is atraumatic, normocephalic. Hears conversational speech. No nasal drainage. RESPIRATORY: Non-labored respirations and equal bilateral excursions. CARDIOVASCULAR: Palpable 2+ radial pulses. ABDOMEN: Protuberant. No peritonitis. MUSCULOSKELETAL: No gross deformity of the lower extremities noted. No clubbing. No cyanosis. SKIN: Good skin turgor. Well perfused. NEUROLOGIC: Cranial nerves II through XII grossly intact. No focal or lateralizing signs. PSYCH: Appropriate affect. Alert and oriented to person, place and time. CLINICAL LABS: Reviewed. LFTs trending down over 24 hours. Total bilirubin normal. REPORT: MRCP report demonstrates no choledocholithiasis. Impacted gallstone at gallbladder neck identified. ASSESSMENT: 1. Acute cholecystitis due to cystic duct obstruction PLAN: 1. Robotic cholecystectomy described with benefits and risks reviewed. 2. All questions were addressed with the patient and family. 3. She is elevated risk for complications due to morbid obesity, fatty liver disease, acute cholecystitis Objective - Vital Signs Vital signs: Vital Signs Temp 98.1 F 11/14/21 13:28 Pulse 70 11/14/21 13:28 Resp 18 11/14/21 13:28 BP 128/92 11/14/21 13:28 Pulse Ox 93 L 11/14/21 07:00 FiO2 Intake & Output 11/13/21 11/14/21 11/14/21 18:59 06:59 18:59 Intake Total 240 Balance 240 Weight 113.398 kg Intake: Oral 240 Other: Voiding Method Toilet Toilet # Voids 2 1 2 - Labs CBC & Chem 7: 11/14/21 07:39 11/14/21 07:39 Labs: Abnormal Lab Results - Last 24 Hours (Table) 11/14/21 Range/Units 07:39 BUN 5.6 L (9.0-27.0) mg/dL BUN/Creatinine Ratio 7.00 L (12.00-20.00) Ratio AST 186 H (13-35) U/L ALT 527 H (8-44) U/L Alkaline Phosphatase 160 H (41-126) U/L Albumin/Globulin Ratio 1.57 L (1.60-3.17) g/dL Microbiology - Last 24 Hours (Table) 11/12/21 23:15 Urine Culture - Final Urine,Voided Strep agalactiae - (group b)
[2021-11-14] MEDS ORDERED: INDOCYANINE GREEN 25 MG VIAL IV STA (14:50)
[2021-11-14] MEDS ORDERED: IV FLUID CONTINUATION 1,000 ML IV ONE ×2 (17:03)
[2021-11-14] MEDS: ONDANSETRON 4 MG/2 ML VIAL IVP PRN (17:10)
[2021-11-14] MEDS ORDERED: HEPARIN SODIUM,PORCINE/PF 5,000 UNIT/0.5 ML SYRINGE SQ ONE (17:11)
[2021-11-14] MEDS ORDERED: SUCCINYLCHOLINE CHLORIDE 200 MG/10 ML VIAL IV ONE (17:18)
[2021-11-14] MEDS ORDERED: LIDOCAINE 2% INJ 20 MG/ML (2 ML VIAL) ONE (17:18)
[2021-11-14] MEDS ORDERED: ROCURONIUM 10 MG/ML (5 ML VIAL) IV ONE (17:18)
[2021-11-14] MEDS ORDERED: fentaNYL (PF) 50 MCG/ML 2 ML AMP ONE (17:18)
[2021-11-14] MEDS ORDERED: GLYCOPYRROLATE 0.2 MG/ML 2 ML VIAL ONE (17:18)
[2021-11-14] MEDS ORDERED: PROPOFOL 10 MG/ML 20 ML VIAL IV ONE (17:18)
[2021-11-14] MEDS ORDERED: MIDAZOLAM 2 MG/2 ML VIAL ONE (17:18)
[2021-11-14] MEDS ORDERED: NEOSTIGMINE 1 MG/ML 10 ML VIAL ONE (17:18)
[2021-11-14] MEDS ORDERED: HYDROmorphone (PF) 1 MG/ML ONE (17:18)
[2021-11-14] MEDS ORDERED: LIDOCAINE 1%-EPI 1:100,000 20 ML VIAL SQ ONE (17:42)
[2021-11-14] MEDS ORDERED: METOCLOPRAMIDE 5 MG/ML 2 ML VIAL IVP PRN (18:20)
--- NOTE | 2021-11-14 18:26 | P.OP ---
Date of Procedure: 11/14/21 Description of Procedure: SURGEON: STEPHIE BROWN MD PREOPERATIVE DIAGNOSES: 1. Choledocholithiasis with acute cholecystitis 2. Morbid obesity due to excess calories, BMI 38.0 3. Elevated liver enzymes 4. Multiple food ALLERGIES POSTOPERATIVE DIAGNOSES: 1. Choledocholithiasis with acute cholecystitis 2. Morbid obesity due to excess calories, BMI 38.0 3. Elevated liver enzymes 4. Multiple food [id number]. Peritoneal adhesions, right upper quadrant OPERATION: Robotic-assisted da Daniella Xi laparoscopic cholecystectomy, multiport with FIREFLY ESTIMATED BLOOD LOSS: 5 mL. SPECIMENS REMOVED: Gallbladder. COMPLICATIONS: None. OPERATIVE FINDINGS: 1. Moderate scarring over entire gallbladder with peritoneal adhesions, pericholecystic with features of acute on chronic cholecystitis INDICATIONS: The patient is a 51-year-old female who presents with elevated liver enzymes including recent choledocholithiasis and acute cholecystitis. Robotic assisted laparoscopic approach was described. Benefits and risks of the procedure including but not limited to bleeding, infection, injury to the biliary tree was described. Informed consent was obtained. DESCRIPTION OF PROCEDURE: Patient was brought to the operating room, placed in supine position. After general induction, the abdomen had been prepped and draped in standard sterile fashion. The robotic da Daniella XI system was primed. After a timeout protocol was performed, the patient had been prepped and draped in standard sterile fashion. The patient was injected with indocyanine green. A 5 mm 0 degrees laparoscopic trocar entry was performed along the left upper quadrant. The abdomen insufflated to 15 mmHg pressure which was tolerated well. Diagnostic laparoscopy demonstrated no injury to bowel viscera or mesentery. The liver surface was unremarkable. Next, two 8 mm robotic ports were placed along the right upper abdomen. The camera 8-mm port was maintained along the epigastrium. Another 8 mm port was placed along the left upper abdominal wall after exchanging the 5 mm port. Please note that the ports were placed at least 10 to 15 cm away from the target anatomy of the gallbladder. The robot was docked along the left lateral abdomen. The patient was repositioned in reverse Trendelenburg position. Using a grasper for arm 3, a grasper for arm 4, including hook cautery for arm 1, the robotic system was docked and primed as described. Instruments were interchanged by the assistant controller including hook cautery, Bovie cautery and clip appliers. I had sat at the console. The gallbladder was scarred with peritoneal adhesions. Lysis of adhesions was performed to free the gallbladder from the surrounding tissues. Next attention was brought to the infundibulum and cystic structures. The infundibulum and cystic duct were dissected free from surrounding tissues. The cystic duct was isolated. FIREFLY was used to identify the cystic artery and cystic structures. A critical view of safety was obtained. Large PLASTIC clips were used throughout the entire case. Using a clip stock saw operator, 2 clips were placed at the junction of the infundibulum and cystic duct. The cystic duct was divided between clips. Next, the cystic artery was similarly clipped and cauterized. Electro-Bovie cautery was used to remove the gallbladder from the hepatic fossa. Hemostasis was checked and found to be adequate. The robot was undocked. I re-scrubbed into the case. Using a 10 mm Endo Catch bag via the left upper quadrant incision, the specimen was removed from the abdominal cavity. All pneumoperitoneum instruments were evacuated from the abdominal cavity. The incisions were reapproximated using 4-0 Monocryl in an interrupted subcuticular fashion. Fascial defects were less than 8 mm in size. Please note along the trocar sites, local anesthetic was placed as a field block prior to insertion of all instruments. Liquid glue was applied to the skin. At the end of the procedure needle, sponge, and instrument count had been verified correct by the surgical first assistant. The patient was transferred to postanesthesia care unit in stable condition.
[2021-11-14] MEDS: ACETAMINOPHEN IV (For NPO) 1,000 MG in EMPTY BAG 1 BAG IVPB SCH ×2 (18:49→23:36)
[2021-11-14] MEDS: KETOROLAC 15 MG/ML 1 ML VIAL IVP SCH ×2 (18:49→23:38)
[2021-11-14] MEDS ORDERED: SODIUM CHLORIDE 0.9% 1,000 ML IV ONE (19:06)
[2021-11-14] MEDS: diphenhydrAMINE 25 MG CAP PO SCH (19:57)
[2021-11-14] MEDS: SIMETHICONE 80 MG CHEWABLE PO SCH (19:58)
[2021-11-14 23:08] VITALS: TEMP 97.7
[2021-11-15] MEDS: SODIUM CHLORIDE 0.9% 1,000 ML IV SCH ×2 (02:05→09:13)
[2021-11-15] MEDS: PIPERACILLIN-TAZOBACTAM 3.375 GM in SODIUM CHLORIDE 0.9% 100 ML IVPB SCH ×2 (02:05→09:12)
[2021-11-15 04:38] LABS: ALT 337 U/L (4-34); AST 107 U/L (14-36); African American GFR (CKD) >90 (>60 ml/min/1.73 sqM); Albumin 3.7 g/dL (3.5-5.0); Albumin/Globulin Ratio 1.5; Alkaline Phosphatase 116 U/L (38-126); Anion Gap 12 mmol/L; Blood Urea Nitrogen 7 mg/dL (7-17); Calcium 8.4 mg/dL (8.4-10.2); Carbon Dioxide 19 mmol/L (22-30); Chloride 106 mmol/L (98-107); Globulin 2.5 g/dL; Glucose 89 mg/dL (74-99); Non-African American GFR(CKD) >90 (>60 ml/min/1.73 sqM); Potassium 3.8 mmol/L (3.5-5.1); Sodium 137 mmol/L (137-145); Total Bilirubin 0.5 mg/dL (0.2-1.3); Total Protein 6.2 g/dL (6.3-8.2)
[2021-11-15] MEDS: ACETAMINOPHEN IV (For NPO) 1,000 MG in EMPTY BAG 1 BAG IVPB SCH (05:52)
[2021-11-15] MEDS: KETOROLAC 15 MG/ML 1 ML VIAL IVP SCH ×2 (05:52→12:08)
[2021-11-15 08:59] VITALS: BP 95/58; PULSE 60; RESP 18
[2021-11-15] MEDS ORDERED: ENOXAPARIN 30 MG/0.3 ML SYRINGE SQ SCH (09:00)
[2021-11-15] MEDS: SIMETHICONE 80 MG CHEWABLE PO SCH (09:12)
[2021-11-15] MEDS: PANTOPRAZOLE 40 MG/10 ML VIAL IV SCH (09:13)
--- NOTE | 2021-11-15 13:58 | P.DS ---
Providers Date of admission: 11/13/21 02:57 Expected date of discharge: 11/15/21 Attending physician: Brenna Starks Consults: 11/13/21 02:55 Consult Physician Routine Consulting Provider: Yanely Fernando Consult Reason/Comments: marifer Do you want consulting provider notified?: Yes Primary care physician: [facility] Course: POSTOPERATIVE DIAGNOSES: 1. Choledocholithiasis with acute cholecystitis 2. Morbid obesity due to excess calories, BMI 38.0 3. Elevated liver enzymes 4. Multiple food ALLERGIES5 COURSE: The patient is a 51-year-old female admitted for choledocholithiasis acute cholecystitis. She is status post cholecystectomy. Pain is well- controlled. She is tolerating diet. ROS: No fevers or chills. No new chest pain. No productive sputum PHYSICAL EXAM: VITAL SIGNS: Reviewed CONSTITUTIONAL: Well developed and in no acute distress. EYES: Conjuctivae without sclera icterus. Extraocular movements grossly intact. HEAD, EARS, NOSE, THROAT: Moist buccal mucosa. Head is atraumatic, normocephalic. Hears conversational speech. No nasal drainage. RESPIRATORY: Non-labored respirations and equal bilateral excursions. CARDIOVASCULAR: Palpable 2+ radial pulses. ABDOMEN: Incisions intact. MUSCULOSKELETAL: No gross deformity of the lower extremities noted. No clubbing. No cyanosis. SKIN: Good skin turgor. Well perfused. NEUROLOGIC: Cranial nerves II through XII grossly intact. No focal or lateralizing signs. PSYCH: Appropriate affect. Alert and oriented to person, place and time. CLINICAL LABS: Reviewed. Total bilirubin normal. LFTs trending down. ASSESSMENT: 1. Acute cholecystitis due to cystic duct obstruction PLAN: 1. Clinically stable. June discharge. 2. Follow-up with primary care provider for repeat liver enzymes 3. Return to work for December 01 following complete recovery Procedures: OPERATION: Robotic-assisted da Daniella Xi laparoscopic cholecystectomy, multiport with FIREFLY ESTIMATED BLOOD LOSS: 5 mL. SPECIMENS REMOVED: Gallbladder. COMPLICATIONS: None. OPERATIVE FINDINGS: 1. Moderate scarring over entire gallbladder with peritoneal adhesions, pericholecystic with features of acute on chronic cholecystitis Patient Condition at Discharge: Good Plan - Discharge Summary New Discharge Prescriptions: New Simethicone [Gas-X] 125 mg PO AC-TID PRN #20 capsule PRN Reason: Pain Ibuprofen [Motrin] 600 mg PO Q8HR PRN #30 tab PRN Reason: Pain Acetaminophen Tab [Tylenol Tab] 1,000 mg PO Q6HR PRN #30 tablet PRN Reason: Pain Continue diphenhydrAMINE HCL [Benadryl] 50 mg PO HS Cetirizine HCl [Zyrtec] 10 mg PO DAILY Discharge Medication List Cetirizine HCl [Zyrtec] 10 mg PO DAILY 11/13/21 [History] diphenhydrAMINE HCL [Benadryl] 50 mg PO HS 11/13/21 [History] Acetaminophen Tab [Tylenol Tab] 1,000 mg PO Q6HR PRN #30 tablet 11/15/21 [Rx] Ibuprofen [Motrin] 600 mg PO Q8HR PRN #30 tab 11/15/21 [Rx] Simethicone [Gas-X] 125 mg PO AC-TID PRN #20 capsule 11/15/21 [Rx] Follow up Appointment(s)/Referral(s): Anjum Johnson MD [Primary Care Provider] - 1-2 days Brenna Starks MD [STAFF PHYSICIAN] - 11/18/21 (TELEHEALTH) Patient Instructions/Handouts: *Surgery [facility] - Managing Your Pain After Surgery Without Opioids, Cholecystitis (GEN), Gallstones (DC), Low Fat Diet (DC), Laparoscopic Cholecystectomy (GEN) Activity/Diet/Wound Care/Special Instructions: Recommend low-fat diet for the next 2 days. No lifting over 10 pounds in 2 weeks until Nov 28. May shower. No bath tub soaks for two weeks until Nov 28 Diet as tolerated. Use Tylenol, simethicone and ibuprofen or Aleve scheduled for the next 24-48 hours for best pain relief. Use ice along incisions for today to prevent swelling. Discharge Disposition: HOME SELF-CARE
--- NOTE | 2021-11-27 05:31 | CDI ---
Documentation Clarification Form Date: 11/27/2021 05:15:00 AM From: Kandace Cantrell Admit Date: 11/14/2021 06:21:00 PM Patient Name: Lindsey Marroquin Visit Number: [id number] Discharge Date: 11/15/2021 02:46:00 PM ATTENTION: The Clinical Documentation Specialists (CDI) and [facility] Coding Staff appreciate your assistance in clarifying documentation. Please respond to the clarification below the line at the bottom and electronically sign. The CDI & [facility] Coding staff will review the response and follow-up if needed. Please note: Queries are made part of the Legal Health Record. If you have any questions, please contact the author of this message via ITS. Dr. Brenna Starks Possible UTI is documented in the H and P. Diagnosis of UTI is not carried through the chart. Additional clarification regarding this diagnosis is requested. Did patient have a UTI or was UTI ruled out. History/Risk Factors: Acute and chronic cholecystitis with choledochlithiasis and obstruction Clinical Indicators: Vital Signs: 98 F, 84 bpm, 16, 164/107, 98% RA WBC: 4.5 Urinalysis: Cloudy, Rare A bacteria, Mucus Rare A, 1+ Protein, RBC 10, WBC 23 Urine Culture: Strep agalactiae Group B Treatment antibiotics Antibiotics Ampicillin and Zosyn Please clarify if patient had a UTI or was UTI ruled out: [ X ] UTI [ ] UTI ruled out [ ] Other, please specify [ ] Unable to determine Present on Admission: [X ] Yes [ ] No KM 11/27/21 1413 MTDD
== END 2021-11-15 14:46 | disposition home or self-care (01) | DRG 418 ==
LOC: EC 20:17 → 6NMEDSUR 11-13 02:57 → OBSVTOIN 11-14 18:21 → UNDODISOB 11-15 14:46
PROVIDERS: ADMIT Surgery Plastic and Reconstructive Surgery; ATTEND Surgery Plastic and Reconstructive Surgery
PROC: BF53200 Other Imaging of Gallbladder and Bile Ducts using Fluorescing Agent, Indocyanine Green Dye, Intraoperative (ICD-10-PCS; principal; 2021-11-14 09:00)
PROC: 0FT44ZZ Resection of Gallbladder, Percutaneous Endoscopic Approach (ICD-10-PCS; principal; 2021-11-14 09:00)
PROC: 8E0W4CZ Robotic Assisted Procedure of Trunk Region, Percutaneous Endoscopic Approach (ICD-10-PCS; principal; 2021-11-14 09:00)
DX: K80.67 Calculus of gallbladder and bile duct with acute and chronic cholecystitis with obstruction (principal); N39.0 Urinary tract infection, site not specified; R74.01 Elevation of levels of liver transaminase levels; Z68.38 Body mass index [BMI] 38.0-38.9, adult; E66.01 Morbid (severe) obesity due to excess calories; K76.0 Fatty (change of) liver, not elsewhere classified; Z28.311 Partially vaccinated for COVID-19; Z28.21 Immunization not carried out because of patient refusal; Z91.012 Allergy to eggs; Z91.011 Allergy to milk products; Z88.5 Allergy status to narcotic agent; Z91.018 Allergy to other foods; Z79.899 Other long term (current) drug therapy
CPT/HCPCS: 36415; 74181; 76705; 80053; 80074; 81001; 81025; 82150; 83605; 83690; 83735; 84100; 84484; 85025; 85610; 85730; 87086; 88304; 93005; 96374; 96376

== ENCOUNTER → 2022-07-16 | Outpatient (CLI) | payer BC ==
--- NOTE | 2022-07-17 06:56 | MM ---
Reason for Exam: Screening (asymptomatic). Patient History: Menarche at age 11. Patient has no children. Postmenopausal. Hormonal Contraceptives for 8 years from age 16 until age 24. Risk Values: Deepika 5 year model risk: 1.2%. NCI Lifetime model risk: 9.4%. Tissue Density: There are scattered fibroglandular densities. Findings: Analyzed By CAD. Benign-appearing bilateral axillary lymph nodes. There is no suspicious group of microcalcifications or suspicious mass in either breast. Overall Assessment: Negative, BI-RAD 1 Management: Screening Mammogram of both breasts in 1 year. . Patient should continue monthly self-breast exams. A clinical breast exam by your physician is recommended on an annual basis. This exam should not preclude additional follow-up of suspicious palpable abnormalities. Note on Deepika scores and lifetime risk: 1. A Deepika score greater than 3% is considered moderate risk. If this is the case, consider specialist referral to assess eligibility for a risk reducing agent. 2. If overall lifetime risk for the development of breast cancer is 20% or higher, the patient may qualify for future screening with alternating mammogram and breast MRI. Electronically signed and approved by: Francisco West M.D.
== END | disposition home or self-care (01) ==
LOC: RADMAMWWP 15:54
PROVIDERS: ATTEND Obstetrics & Gynecology
DX: Z12.31 Encounter for screening mammogram for malignant neoplasm of breast (principal); Z78.0 Asymptomatic menopausal state
CPT/HCPCS: 77063; 77067

== ENCOUNTER → 2023-07-05 | Outpatient (CLI) | payer BC | END | disposition home or self-care (01) | LOC: LABWHC1 14:27 | PROVIDERS: ATTEND Family Medicine | DX: J30.89 Other allergic rhinitis (principal); J45.991 Cough variant asthma | CPT/HCPCS: 36415 ==